=== PATIENT | female | born 1990 | race Caucasian/White ===

== ENCOUNTER 2016-11-18 05:34 | Inpatient (IN) | payer OTHER ==
[~2016-11-18] VITALS: Ht 160 cm; Wt 69.5 kg
[2016-11-18] MEDS ORDERED: OXYTOCIN 30U/ 0.9% NaCL 500ML 500 ML IV SCH (05:38)
[2016-11-18 05:45] VITALS: BP 116/60
[2016-11-18] MEDS: LACTATED RINGERS 1,000 ML IV SCH ×9 (05:45→20:43)
[2016-11-18] MEDS ORDERED: IRON1TAB60 PO (05:51)
[2016-11-18] MEDS ORDERED: LACTATED RINGERS 1,000 ML IVBOLUS ONE (06:00)
[2016-11-18] MEDS ORDERED: SODIUM CITRATE/CITRIC ACID 30 ML UDC PO ONE (06:00)
[2016-11-18] MEDS ORDERED: METOCLOPRAMIDE 5 MG/ML, 2ML IV ONE (06:00)
[2016-11-18 06:43] LABS: HEMOGLOBIN 8.3 g/dL (11.7-16.4)
[2016-11-18] MEDS ORDERED: METOCLOPRAMIDE 5 MG/ML, 2ML ONE (06:45)
[2016-11-18] MEDS ORDERED: SODIUM CITRATE/CITRIC ACID 30 ML UDC ONE (06:45)
[2016-11-18] MEDS ORDERED: OXYTOCIN 30U/ 0.9% NaCL 500ML 500 ML ONE (06:46)
[2016-11-18] MEDS ORDERED: NEWBORN KIT ONE (06:46)
[2016-11-18] MEDS ORDERED: FENTANYL PF 100 MCG/2ML ONE (07:10)
[2016-11-18] MEDS ORDERED: KETOROLAC 30 MG/1 ML ONE (10:38)
[2016-11-18] MEDS ORDERED: CEFAZOLIN 1,000 MG ONE (10:38)
[2016-11-18] MEDS ORDERED: PHENYLEPHRINE 10 MG/ML ONE (10:38)
[2016-11-18] MEDS ORDERED: EPHEDRINE 50 MG/ML, 1ML ONE (10:38)
[2016-11-18] MEDS: OXYTOCIN 30U/ 0.9% NaCL 500ML 500 ML IV SCH ×2 (10:43→20:43)
[2016-11-18] MEDS ORDERED: MISOPROSTOL 200 MCG TABLET PR PRN (11:00)
[2016-11-18] MEDS ORDERED: CALCIUM CARBONATE 500 MG TAB.CHEW PO PRN (11:00)
[2016-11-18] MEDS ORDERED: ONDANSETRON 2MG/ML, 2ML IV PRN (11:00)
[2016-11-18] MEDS ORDERED: MEASLES,MUMPS&RUBELLA VACC/PF 0.5 ML SQ-VACC PRN (11:00)
[2016-11-18] MEDS ORDERED: RHOGAM FROM BLOOD BANK 1 NOTE EA IM/IV ONE (11:00)
[2016-11-18] MEDS ORDERED: SIMETHICONE 80 MG CHEW TAB PO PRN (11:00)
[2016-11-18] MEDS: KETOROLAC 30 MG/1 ML IV SCH ×2 (11:00→17:46)
[2016-11-18] MEDS ORDERED: DIPH,PERTUSS(ACELL),TET VAC/PF NC IM-VACC PRN (11:00)
[2016-11-18] MEDS ORDERED: MEPERIDINE/PF 25MG/0.5ML IVPush PRN (12:00)
[2016-11-18] MEDS ORDERED: OXYcodone 5 MG/5 ML ORAL.SOL UDC PO PRN (12:00)
[2016-11-18] MEDS ORDERED: morphine SULFATE 10 MG/ML, 1ML IV PRN (12:00)
[2016-11-18] MEDS ORDERED: ONDANSETRON 2MG/ML, 2ML IVPush PRN (12:00)
[2016-11-18] MEDS ORDERED: FENTANYL PF 100 MCG/2ML IV PRN (12:00)
[2016-11-18 13:45] VITALS: BP 101/57
[2016-11-18] MEDS: OXYcodone/APAP 5/325MG TABLET PO PRN ×2 (14:46→22:54)
[2016-11-18 16:04] VITALS: BP 95/57
[2016-11-18] MEDS: OXYcodone IR 5MG TABLET PO PRN (18:39)
[2016-11-18 19:07] LABS: HEMOGLOBIN 9.1 g/dL (11.7-16.4)
[2016-11-18 20:00] VITALS: BP 102/66
[2016-11-18] MEDS: DOCUSATE 100 MG CAPSULE PO PRN (22:54)
[2016-11-19 00:05] VITALS: BP 103/66
[2016-11-19] MEDS: LACTATED RINGERS 1,000 ML IV SCH ×5 (02:43→18:43)
[2016-11-19] MEDS: OXYcodone IR 5MG TABLET PO PRN (03:24)
[2016-11-19 04:25] VITALS: BP 104/62
[2016-11-19] MEDS: KETOROLAC 30 MG/1 ML IV SCH ×5 (05:41→23:55)
[2016-11-19] MEDS: OXYTOCIN 30U/ 0.9% NaCL 500ML 500 ML IV SCH ×2 (06:43→16:43)
[2016-11-19] MEDS: DOCUSATE 100 MG CAPSULE PO PRN ×2 (07:18→19:56)
[2016-11-19] MEDS: OXYcodone/APAP 5/325MG TABLET PO PRN ×5 (07:18→23:55)
[2016-11-19 07:20] VITALS: BP 102/60
[2016-11-19] MEDS: PRENATAL VIT/IRON/FA 1 EACH TABLET PO SCH (09:06)
[2016-11-19 20:00] VITALS: BP 97/61
[2016-11-20] MEDS: OXYTOCIN 30U/ 0.9% NaCL 500ML 500 ML IV SCH ×2 (02:43→12:43)
[2016-11-20] MEDS: LACTATED RINGERS 1,000 ML IV SCH ×4 (02:43→12:43)
[2016-11-20] MEDS: OXYcodone/APAP 5/325MG TABLET PO PRN ×5 (03:51→17:44)
[2016-11-20] MEDS: KETOROLAC 30 MG/1 ML IV SCH (05:49)
[2016-11-20 09:00] VITALS: BP 105/61
[2016-11-20] MEDS: PRENATAL VIT/IRON/FA 1 EACH TABLET PO SCH (09:00)
[2016-11-20] MEDS: DOCUSATE 100 MG CAPSULE PO PRN (09:14)
[2016-11-20] MEDS: IBUPROFEN 600 MG TABLET PO PRN ×2 (11:50→17:43)
[2016-11-20] MEDS ORDERED: OXYC-302 PO (17:35)
[2016-11-20] MEDS ORDERED: IBUP-1222 PO (17:35)
== END 2016-11-20 18:47 | disposition home or self-care (01) | DRG 766 ==
LOC: LDIP 05:34 → 2NW 13:40
PROVIDERS: ADMIT Obstetrics & Gynecology Gynecology; ATTEND Obstetrics & Gynecology Gynecology
PROC: 10D00Z1 Extraction of Products of Conception, Low, Open Approach (ICD-10-PCS; principal; 2016-11-18)
DX: O34.211 Maternal care for low transverse scar from previous cesarean delivery (principal); Z37.0 Single live birth; Z3A.39 39 weeks gestation of pregnancy
CPT/HCPCS: 36415; 82803; 85025; 86850; 86900; J0690; J1885; J3010; J2370; J2590; J2765; J7120